=== PATIENT | male | born 1975 | race Caucasian/White ===

== ENCOUNTER 2017-03-18 05:53 | Day surgery (SDC) | payer BC ==
[2017-03-18] MEDS ORDERED: DIPRIVAN 200 MG/20 ML IV ONE (05:54)
[2017-03-18] MEDS ORDERED: Versed 2 MG/2 ML Injection IV ONE (05:54)
[2017-03-18] MEDS ORDERED: Lactated Ringers 1,000 ML IV SCH (06:00)
[2017-03-18] MEDS ORDERED: Lactated Ringers 1,000 ML IV ONE (06:20)
[2017-03-18 08:15] LABS: Hematocrit 46.1 % (42-50); Hemoglobin 15.6 gm/dl (12.5-18.0); Mean Cell Volume 92.2 fl (78-100); Mean Corpuscular Hemoglobin 31.2 pg (26-32); Mean Corpuscular Hgb Concent. 33.8 g/dl (32-36); Mean Platelet Volume 10.6 fl (6-9.5); Platelet Count 200 K/mm3 (150-450); Red Cell Distribution Width 12.7 % (11.5-14.0); White Blood Count 6.2 K/mm3 (4.0-10.5)
[2017-03-18 08:25] VITALS: O2SAT 98
[2017-03-18 08:54] VITALS: BP 133/88; PULSE 62
[2017-03-18 10:00] LABS: ALBUMIN 3.5 g/dL (3.4-5.0); ALKALINE PHOSPHATASE 88 U/L (46-116); ANION GAP 10.1 MEQ/L (5-15); BLOOD UREA NITROGEN 8 mg/dL (9-20); CHLORIDE 104 mEq/L (98-107); Calcium 8.8 mg/dL (8.5-10.1); Carbon Dioxide 28.2 mEq/L (21-32); Cholesterol 148 mg/dL (100-200); Creatinine 1 1.01 mg/dl (0.55-1.30); EST GLOMERULAR FILTRATION RATE > 60 ML/MIN; Glucose 93 MG/DL (70-110); HDL CHOLESTEROL 30 mg/dL (35-60); LDL, DIRECT 93 mg/dL (5-99); Potassium 4.6 mEq/L (3.5-5.1); Risk Ratio 4.9; SGOT/AST 33 U/L (15-37); SGPT/ALT 49 U/L (12-78); SODIUM 138 mEq/L (136-145); TRIGLYCERIDE 183 mg/dL (30-200); Total Protein 6.7 gm/dL (6.4-8.2)
--- NOTE | 2017-03-18 14:54 | OP ---
SURGERY DATE/TIME: 03/18/2017 0725 PREOPERATIVE DIAGNOSIS: Screening exam. POSTOPERATIVE DIAGNOSIS: Sigmoid colon polyp. PROCEDURE: Colonoscopy with hot snare polypectomy. SURGEON: Dr. Clarke. ANESTHESIA: MAC. Medications given by anesthesia department. HISTORY: The patient is a 41 year-old white male presenting now for screening colonoscopy. He has a strong family of colon cancer. The patient was felt the need to have endoscopic evaluation. He was appraised of the risks of the procedure including the risk of perforation, phlebitis, untoward reaction to medication, bleeding and missed lesions. The patient verbalized his understanding and desired to have the procedure performed. DESCRIPTION OF PROCEDURE: The patient was given the medications by the anesthesia department. He had continuous pulse oximetry, ECG monitoring, intermittent blood pressure monitoring and tidal CO2 monitoring during the examination. He was placed in the left lateral decubitus position. A digital rectal examination was performed and revealed normal anal sphincter tone, no masses and normal prostate. The flexible Olympus pediatric colonoscope was used to intubate the rectum. A view of the colon was developed sequentially to the cecum. Upon insertion and withdrawal, there was noted a pedunculated polyp measuring approximately 1 cm in diameter in the sigmoid colon and this was removed using hot polypectomy snare. The polyp was retrieved for pathologic evaluation. The scope was removed from the patient who tolerated the procedure well and was sent back to OP recovery in good condition. The prep was noted to be fair to good.
== END 2017-03-18 08:51 | disposition home or self-care (01) ==
LOC: SDC 05:53
PROVIDERS: ATTEND Family Medicine
PROC: 0DBN8ZX Excision of Sigmoid Colon, Via Natural or Artificial Opening Endoscopic, Diagnostic (ICD-10-PCS; principal; 2017-03-18)
DX: Z12.11 Encounter for screening for malignant neoplasm of colon (principal); K63.5 Polyp of colon; I10 Essential (primary) hypertension; E78.5 Hyperlipidemia, unspecified; Z80.0 Family history of malignant neoplasm of digestive organs
CPT/HCPCS: 00810; 36415; 80053; 80061; 83721; 85027; 88305; J2250; J2704

== ENCOUNTER 2022-01-16 05:48 | Day surgery (SDC) | payer BC ==
[2022-01-16] MEDS ORDERED: Lactated Ringers 1,000 ML IV SCH (06:30)
[2022-01-16] MEDS ORDERED: DIPRIVAN 200 MG/20 ML IV ONE ×2 (08:07→08:29)
[2022-01-16] MEDS ORDERED: Versed 2 MG/2 ML Injection ONE (08:07)
[2022-01-16 09:06] VITALS: O2SAT 98
[2022-01-16 09:16] VITALS: BP 143/94; PULSE 68
--- NOTE | 2022-01-16 13:17 | OP ---
SURGERY DATE/TIME: 01/16/2022812 PREOPERATIVE DIAGNOSIS: History of colon polyps and rectal bleeding. POSTOPERATIVE DIAGNOSIS: Small polyp in the sigmoid colon. PROCEDURE: Colonoscopy with cold forceps biopsy. SURGEON: Dr. Stan Clarke. ANESTHESIA: MAC. Medications given by anesthesia department. HISTORY: The patient is a 46-year-old white male patient who reports he has been having problems with rectal bleeding. He has not had any over the past seven days. The patient reports previously having colon polyps and strong family history of colon cancer. The patient is felt the need to have endoscopic evaluation. He was appraised of the risks of the procedure including the risk of perforation, phlebitis, untoward reaction to medication, bleeding and missed lesions. The patient verbalized his understanding and desired to have the procedure performed. DESCRIPTION OF PROCEDURE: The patient was given the medications by the anesthesia department. He had continuous pulse oximetry, ECG monitoring, intermittent blood pressure monitoring during the examination. He was placed in the left lateral decubitus position. A digital rectal examination was performed and revealed normal anal sphincter tone, no masses. The flexible Olympus pediatric colonoscope was used to intubate the rectum. A view of the colon was developed sequentially to the cecum including a short distance in the terminal ileum. Upon insertion and withdrawal was noted a small polyp in the sigmoid colon this is destroyed using multiple passes with cold forceps biopsy. No other mucosal lesions being encountered, the scope was removed from the patient who tolerated the procedure well and was sent back to outpatient recovery in good condition. The prep was noted to be fair.
== END 2022-01-16 09:23 | disposition home or self-care (01) ==
LOC: SDC 05:48
PROVIDERS: ATTEND Family Medicine
DX: Z09 Encounter for follow-up examination after completed treatment for conditions other than malignant neoplasm (principal); Z86.010 Personal history of colon polyps; Z87.19 Personal history of other diseases of the digestive system; D12.5 Benign neoplasm of sigmoid colon
CPT/HCPCS: J2250; J2704

== ENCOUNTER 2022-05-29 06:24 | Day surgery (SDC) | payer BC ==
[2022-05-29] MEDS ORDERED: Lactated Ringers 1,000 ML IV SCH (07:00)
[2022-05-29] MEDS ORDERED: Xylocaine-Mpf 2% 5 Ml Vial ONE (07:28)
[2022-05-29] MEDS ORDERED: Versed 2 MG/2 ML Injection ONE (07:28)
[2022-05-29] MEDS ORDERED: DIPRIVAN 200 MG/20 ML IV ONE ×2 (07:28→08:11)
[2022-05-29 08:34] VITALS: BP 123/81; PULSE 70; O2SAT 98
--- NOTE | 2022-05-29 12:58 | OP ---
SURGERY DATE/TIME: 05/29/2022 0801 PREOPERATIVE DIAGNOSIS: Epigastric pain. POSTOPERATIVE DIAGNOSIS: Mild gastritis. PROCEDURE: Esophagogastroduodenoscopy with cold forceps biopsy of gastric antrum. SURGEON: Dr. Clarke. ANESTHESIA: Medications were given by the anesthesia department. HISTORY: The patient is a 46-year-old white male who reports now he has been having significant abdominal pain in epigastric region for a number of months. He was ordered omeprazole with initially better relief but for the last couple three months he had continued pain despite this medication. The patient was felt the need to have endoscopic evaluation. He was appraised of the risks of the procedure including the risk of perforation, phlebitis, untoward reaction to medication, bleeding and missed lesions. The patient verbalized his understanding and desired to have the procedure performed. DESCRIPTION OF PROCEDURE: The patient was given the medications by the anesthesia department. He had continuous pulse oximetry, ECG monitoring and intermittent blood pressure monitoring during the examination. He was placed in the left lateral decubitus position. A bite block was placed and the flexible Olympus gastroscope was used to intubate the oropharynx. A view of the larynx was obtained and was normal. The scope was easily introduced in the esophagus which appeared to be normal throughout its length. The stomach was entered where normal gastric rugal folds were seen and these distended nicely with insufflation of air. The scope was passed along the greater curvature of the stomach to the antrum. The pylorus was encountered and intubated. The duodenum inspected and found to be normal. The scope is withdrawn towards the stomach again. A retroflex view was obtained of the lesser curvature, fundus and cardia regions of the stomach and these appeared to be normal. The scope was then redirected towards the gastric antrum where biopsies were obtained to rule out the presence of Helicobacter pylori-type organisms. The scope was then removed from the patient who tolerated the procedure well and was sent back to outpatient recovery in good condition.
== END 2022-05-29 08:41 | disposition home or self-care (01) ==
LOC: SDC 06:24
PROVIDERS: ATTEND Family Medicine
DX: K29.70 Gastritis, unspecified, without bleeding (principal); R10.13 Epigastric pain
CPT/HCPCS: J2250; J2704